=== PATIENT | female | born 1980 | race Caucasian/White ===

== ENCOUNTER 2022-01-22 09:47 | Emergency (ER) | payer MEDICAID, SELFPAY ==
[2022-01-22 09:48] VITALS: BP 130/82; PULSE 87; RESP 18; TEMP 36.6; O2SAT 100; BMI 30.9
--- NOTE | 2022-01-22 10:16 | EX.ED.DYSGE1 ---
HPI History of Present Illness Chief Complaint: Other, Pain/Inj Detail of Chief Complaint: Hypertension. Anxiety. Informant: patient Onset/Context/Timing Onset: Days Context: Gradual Onset Timing: Intermittent Current Severity: Mild Maximum Severity: Mild Narrative Narrative: 41-year-old female history of hypertension and anxiety. Just got restarted on her blood pressure medication 2 days ago after she was evaluated at [facility]. She was seen in the ER and discharged home. She is currently on no anxiety medications. She was concerned today her blood pressure was elevated but currently the emergency department is 130/82. Also states she had episodes of tingling throughout her whole body. She denies any headache. Prior similar symptoms: Yes Recent Illness/Hospitalization: No PFSH PFSH Medical History no medical history Home Medications lisinopril 5 mg tablet 5 mg PO DAILY 01/22/22 [History Last Taken Unknown] Allergy/AdvReac Type Severity Reaction Status Date / Time No Known Allergies Allergy Verified 01/22/22 09:50 Social History Smoking Status: Current every day smoker tobacco type: cigarettes ROS ROS ED ROS Narrative Tingling. Review of Systems ROS Unobtainable: Denies due to encephalopathy Constitutional Constitutional ED: Denies chills or fever(s) Eyes Eyes: Denies blurry vision ENT ENT ED: Denies ear pain Cardiovascular Cardiovascular: Denies chest pain Respiratory/Chest Respiratory/Chest: Denies cough or dyspnea Gastrointestinal Gastrointestinal: Denies abdominal pain Genitourinary Genitourinary ED: Denies dysuria or hematuria Musculoskeletal Musculoskeletal: Denies arthralgias Integumentary Denies abscess Neurologic Neurologic: Denies headache(s) Psychiatric Psychiatric: Reports anxiety Endocrine Endocrinology: Denies cold intolerance Hematologic/Lymphatic Hematologic/Lymphatic: Reports none Allergic/Immunologic Allergic/Immunologic ED: Denies mouth swelling or tongue swelling EXAM Physical Exam Narrative Exam Narrative: Well-appearing 41-year-old female. Vital signs stable afebrile. Blood pressure 130/82. Pulse ox 100% no hypoxia. She is anxious. She is rapid speech. H EENT exam unremarkable. Neck nontender no lymphadenopathy. Lungs clear to auscultation. Heart regular rhythm rate about 87 no murmur. Abdomen soft nontender. Moving all 4 extremities. 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 Dorsi plantarflexion intact. Neurologic exam normal. Back nontender. NIH is 0. Const Vital Signs: 01/22/22 09:48 01/22/22 09:57 Temperature 97.9 F Temperature Source Temporal Pulse Rate 87 Respiratory Rate 18 Respiratory Effort Normal Non-Labored Blood Pressure 130/82 H Blood Pressure Mean 98 Pulse Ox 100 Oxygen Delivery Method Room Air Positive well nourished and well developed; Negative for cachectic, contractures or unkempt General Appearance ED: well developed and NAD; Negative for unkempt, cachectic, contractures, cyanotic, diaphoretic or pallor Nutritional Appearance: Negative for cachectic HEENT Reports moist mucous membranes; Denies dry mucous membranes Negative for trauma or tenderness Mouth ED: No dry mucous membranes Mouth: No dry mucous membranes Eyes PERRL and EOMs intact bilaterally General Eye ED: Negative for pale conjunctiva or scleral icterus Neck no lymphadenopathy, supple and no JVD General: Negative for tenderness Lymph Lymphatic: Negative for other Chest Wall inspection of chest normal and palpation of chest normal Chest: Negative for other Resp normal respiratory effort and clear to auscultation bilaterally Effort and Inspection: Negative for retractions Auscultation: Negative for rales, rhonchi or wheezes Cardio regular rate, regular rhythm, S1 normal heart sound, S2 normal heart sound and no murmurs GI normal to inspection, nondistended, normoactive bowel sounds, non-tender, non-distended and no masses Auscultation: normoactive bowel sounds Palpation: soft; Negative for tender or guarding Back/Spine no CVA tenderness General Back: Negative for CVA tenderness Cervical Spine: Negative for cervical spine tenderness Thoracic Spine / Upper Back: Negative for thoracic spinal tenderness Lumbar Spine / Lower Back: Negative for lumbar spinal tenderness Extremity normal to inspection General Extremety ED: Negative for edema or tenderness General Extremity: Negative for edema Neuro oriented x3, CN's II-XII intact bilaterally and no sensory deficits noted Sensorium / Orientation: alert; Negative for orientation impaired, lethargic or stuporous Motor Exam: strength 5/5 throughout Psych mental status grossly normal Appearance: Negative for unkempt Attitude: No agitated Mood & Affect: anxious; Negative for depressed Skin no rashes or lesions noted and no wounds General Skin Exam: Negative for jaundice or pallor Lesions: No lesion noted Rashes: No rashes noted Trauma: Negative for abrasion Wounds: Negative for wounds noted MDM MDM MDM Narrative Medical decision making narrative: Patient with anxiety with psychosomatic symptoms. She has a normal exam. Her blood pressure is normal. She will be given primary care physician follow-up with. She needs no further testing. Discharge Plan Triage Chief Complaint: Other, Pain/Inj ED Provider: Kt Ji Dx/Rx/DC Orders Clinical Impression: Anxiety Instructions: ED Anxiety Reaction Prescriptions: No Action lisinopril 5 mg tablet 5 mg PO DAILY Primary Care Provider: NOT,DEFINED Referrals: Mervin Ceja MD [Med Staff - Active Staff] - As soon as possible NOT,DEFINED [Primary Care Provider] - Activity Restrictions/Additional Instructions: Follow-up with a primary care physician. Your exam today is normal. You need no further testing at this time. Continue your blood pressure medication. Disposition Disposition: Home, Self Care
--- NOTE | 2022-01-22 11:19 | ED.RN ---
THIS RN, DR CHO AND MEAGAN SOC[employer] WORK IN TO TALK WITH PT. PT DOES NOT WANT TO LEAVE. PT STATES SHE FEELS SCARED. DR CHO SPENDING SIGNIFICANT TIME WITH PT TO REASSURE HER. THIS RN IN ROOM AND [employer] CASE MANAGEMENT IN ROOM. MULTIPLE RECOURSES OFFERED TO PT. PT VOICES UNDERSTANDING
--- NOTE | 2022-01-22 12:29 | CM.ED ---
Addendum entered by Malorie Russ 01/22/22 12:36: Patient had been to [place] last night for the same issue. Original Note: LITA Note Referral Source: DALE HOOVER Referral Reason: Patient is refusing to leave SW was present in the room with patient,patient's son, MD Ji and DALE Hoover. Patient voiced that she has had anxiety in the past and it has never been like this. Patient voiced that she had a friend that almost from a stroke so she became scared and came to the ED. Patient voiced that she was previously on Prozac and it was beneficial but discontinued it. explained that panic attack symptoms can auto overhauler time. SW offered patient information about the IOP/PHP program at [facility] and brochure but patient said I have had this in the past... I know what to do. SW offered to provide patient with counseling resources and she declined. advised for patient to follow up with her PCP and agreed to give patient a prescription for Prozac. Patient has no PCP so this consumer loan underwriter provided her with [facility] Healthcare Directory and highlighted Family and Internal medicine MD's. MD Ji and DALE SNEHA very supportive of patient and verbalized understanding of her concern. and RN empathetic to patient's concern and validated that patient is medically cleared. Patient declined referral to IOP and counseling services.PCP resources provided. Plan: Home Malorie RussFajardo
== END 2022-01-22 10:41 | disposition home or self-care (01) ==
LOC: ED 10:22
PROVIDERS: Emergency Provider Emergency Medicine; Visit Provider Emergency Medicine
DX: F41.9 Anxiety disorder, unspecified (principal); I10 Essential (primary) hypertension; F17.210 Nicotine dependence, cigarettes, uncomplicated; Z79.899 Other long term (current) drug therapy
CPT/HCPCS: 99282